=== PATIENT | female | born 1995 ===

== ENCOUNTER 2017-05-27 00:40 | Emergency (ER) | payer OTHER ==
[2017-05-27 00:40] VITALS: BMI 22.6
[2017-05-27 01:08] VITALS: BP 107/71; RESP 16; TEMP 98.3; O2SAT 100
--- NOTE | 2017-05-27 01:26 | ED PDOC ---
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 Patient states she has also had a headache for 1 month. Does not see a launch manager and has had similar chest pain before. Denies fever, cough, v/d, SOB, abdominal pain. Past Medical History Reviewed: Historical Data, Nursing Documentation, Vital Signs Vital Signs: Last Vital Signs Temp 98.3 F 05/27/17 01:05 Pulse 67 05/27/17 01:51 Resp 16 05/27/17 01:05 BP 107/71 05/27/17 01:05 Pulse Ox 100 05/27/17 03:41 - Medical History PMH: Asthma Denies: Alzheimer's Disease, Chronic Kidney Disease Other PMH: WPW - Surgical History Surgical History: No Surg Hx - Family History Family History: States: No Known Family Hx - Social History Current smoker - smoking cessation education provided: No Alcohol: None Drugs: Denies - Home Medications Home Medications: Ambulatory Orders Medication Instructions Recorded Vit No.126/Iron/Folic 1 tab PO DAILY 08/18/16 [Prenavite] Ondansetron [Zofran Odt] 4 mg PO ASDIR PRN #10 odt 11/03/16 Albuterol HFA [Ventolin HFA 90 1 puff IH Q6 PRN #1 inhaler 01/31/17 mcg/actuation (8 g)] - Allergies Allergies/Adverse Reactions: Allergies Allergy/AdvReac Type Severity Reaction Status Date / Time influenza virus vaccine, Allergy ANAPHYLAXIS Verified 11/03/16 13:19 specific [influenza virus vacc,specific] latex Allergy RASH Verified 11/03/16 13:19 oseltamivir phosphate Allergy ANAPHYLAXIS Verified 11/03/16 13:19 [From Tamiflu] pomegranate Allergy RASH Verified 11/03/16 13:19 Review of Systems ROS Statement: Except As Marked, All Systems Reviewed And Found Negative Constitutional: Negative for: Fever Cardiovascular: Positive for: Chest Pain Respiratory: Negative for: Cough, Shortness of Breath Gastrointestinal: Negative for: Vomiting, Abdominal Pain, Diarrhea Neurological: Positive for: Headache Physical Exam - Reviewed Nursing Documentation Reviewed: Yes Vital Signs Reviewed: Yes - Physical Exam Appears: Positive for: Well, No Acute Distress Head Exam: Positive for: ATRAUMATIC, NORMAL INSPECTION, NORMOCEPHALIC Skin: Positive for: Normal Color Neck: Positive for: Normal Cardiovascular/Chest: Positive for: Regular Rate, Rhythm. Negative for: Murmur , Tachycardia Respiratory: Positive for: Normal Breath Sounds. Negative for: Wheezing, Respiratory Distress Gastrointestinal/Abdominal: Positive for: Normal Exam, Soft. Negative for: Tenderness Back: Positive for: Normal Inspection Extremity: Positive for: Normal ROM. Negative for: Deformity, Swelling Neurologic/Psych: Positive for: Alert, Oriented - Laboratory Results Result Diagrams: 05/27/17 02:55 05/27/17 02:55 - ECG ECG: Positive for: Interpreted By Me, Viewed By Me ECG Rhythm: Positive for: Sinus Rhythm (WPW, NSR at 73 bpm ) O2 Sat by Pulse Oximetry: 100 Pulse Ox Interpretation: Normal (RA) Medical Decision Making Medical Decision Makin: Impression: chest pain, headache Plan: CT head Labs Toradol 30mg IV reassess 0208: CT head impression: 1. No acute intracranial abnormality. 0332: Labs reviewed, WNL. CT negative. Patient has been sleeping comfortably in ED and is stable for d/c. Advised patient to f/u outpatient with launch manager and neurologist. Return to the ED with any worsening or concerning symptoms. Scribe Attestation: Documented by Lore Tyson acting as a scribe for Madhuri Avina MD. Provider Scribe Attestation: All medical record entries made by the Scribe were at my direction and personally dictated by me. I have reviewed the chart and agree that the record accurately reflects my personal performance of the history, physical exam, medical decision making, and the department course for this patient. I have also personally directed, reviewed, and agree with the discharge instructions and disposition. Disposition - Clinical Impression Clinical Impression: Chest wall pain, Headache - Patient ED Disposition Is Patient to be Admitted: No Counseled Patient/Family Regarding: Studies Performed, Diagnosis, Need For Followup - Disposition Referrals: [facility] [Outside] Ilan Jerez MD [Staff Provider] - Florencio Briones MD [Staff Provider] - Disposition: Routine/Home Disposition Time: 03:00 Condition: IMPROVED Additional Instructions: follow up with your doctor within 1-2 days return to the ED with any worsening or concerning symptoms. Instructions: Chest Wall Pain (ED), General Headache (ED)
[2017-05-27 01:54] VITALS: PULSE 67
[2017-05-27 03:00] LABS: BASO # 0.1 K/uL (0.0-0.2); BASO % 0.8 % (0.0-2.0); EOS # 0.2 K/uL (0.0-0.7); EOS % 2.5 % (0.0-4.0); HEMOGLOBIN 14.3 g/dL (12.0-16.0); LYMPH # 2.6 K/uL (1.0-4.3); LYMPH % 42.2 % (20.0-40.0); MEAN CELL VOLUME 94.2 fl (81.0-99.0); MEAN CORPUSCULAR HEMOGLOBIN 31.8 pg (27.0-31.0); MEAN CORPUSCULAR HGB CONC 33.7 g/dL (33.0-37.0); MEAN PLATELET VOLUME 7.6 fl (7.2-11.7); MONO # 0.6 K/uL (0.0-0.8); MONO % 9.3 % (0.0-10.0); NEUT # 2.7 K/uL (1.8-7.0); NEUT % 45.2 % (50.0-75.0); NRBC % 0.1 % (0.0-0.0); RBC 4.5 Mil/uL (3.80-5.20); RED CELL DISTRIBUTION WIDTH 12.9 % (11.5-14.5); WHITE BLOOD COUNT 6.1 K/uL (4.8-10.8)
[2017-05-27 03:06] LABS: ALB/GLOB RATIO 1.5 (1.0-2.1); ALBUMIN 4.7 g/dL (3.5-5.0); ALT/SGPT 42 U/L (9-52); AST/SGOT 27 U/L (14-36); BLOOD UREA NITROGEN 14 mg/dl (7-17); CALCIUM 9.3 mg/dL (8.4-10.2); GFR AFRICAN-AMERICAN > 60; GFR NON-AFRICAN AMERICAN > 60
--- NOTE | 2017-05-27 10:21 | CT ---
CT head without IV contrast History: Headache Technique: Axial computed tomography images were obtained through the head/brain without intravenous contrast. This CT exam was performed using 1 or more of the falling dose reduction techniques: Automated exposure control, adjustment of the MAA and/or kV according to patient size, and/or use of iterative reconstruction technique. Radiation dose: Total exam DLP = 811.25 mGy-cm. Comparison: Noncontrast head CT performed 05/30/15 Findings: The ventricles, sulci, and cisterns appear within normal limits. No intracranial masses or hemorrhages are identified. The rodriguez-white matter differentiation appears intact. Please note that MRI with diffusion imaging is more sensitive in the detection of acute ischemic event. Visualized paranasal sinuses, mastoid air cells, and both orbits appear unremarkable. Impression: No acute intracranial pathology identified. Preliminary impression was provided by virtual radiologic.
--- NOTE | 2017-06-04 06:29 | CARD ---
APPROVED REPORT EKG Measurement Heart [id number] ME [id number] <Conclusion> Normal sinus rhythm Ventricular pre-excitation, WPW pattern type B Abnormal ECG
== END 2017-05-27 03:50 | disposition home or self-care (01) ==
LOC: H.ER 00:40
DX: R07.89 Other chest pain (principal); R51 Headache; J45.909 Unspecified asthma, uncomplicated

== ENCOUNTER 2017-07-24 18:16 | Emergency (ER) | payer OTHER ==
[2017-07-24 18:24] VITALS: BP 105/65; PULSE 80; RESP 16; TEMP 99.1; O2SAT 100
[2017-07-24 18:25] VITALS: BMI 19.9
--- NOTE | 2017-07-24 18:41 | ED PDOC ---
HPI: General Adult Time Seen by Provider: 07/24/17 18:38 Chief Complaint (Nursing): Lower Extremity Problem/Injury Chief Complaint (Provider): right leg pain History Per: Patient (21 y/o female sent by a clinic for evaluation of right calf pain. Patient states she has noted small bump that she assumed was insect bite. She has scratched this location intermittently but notes increasing pain since. ) Past Medical History Reviewed: Historical Data, Nursing Documentation, Vital Signs Vital Signs: Last Vital Signs Temp 99.1 F 07/24/17 18:24 Pulse 80 07/24/17 18:24 Resp 16 07/24/17 18:24 BP 105/65 07/24/17 18:24 Pulse Ox 100 07/24/17 18:42 - Medical History PMH: Asthma, CAD (WPW) Denies: Alzheimer's Disease, Chronic Kidney Disease - Family History Family History: States: Unknown Family Hx - Home Medications Home Medications: Ambulatory Orders Medication Instructions Recorded Vit No.126/Iron/Folic 1 tab PO DAILY 08/18/16 [Prenavite] Ondansetron [Zofran Odt] 4 mg PO ASDIR PRN #10 odt 11/03/16 Albuterol HFA [Ventolin HFA 90 1 puff IH Q6 PRN #1 inhaler 01/31/17 mcg/actuation (8 g)] Cephalexin [Keflex] 1 tab PO QID #28 capsule 07/24/17 Hydrocortisone 1% Cream [Cortizone 0.5 gm TP BID #1 tube 07/24/17 1% Cream] - Allergies Allergies/Adverse Reactions: Allergies Allergy/AdvReac Type Severity Reaction Status Date / Time influenza virus vaccine, Allergy ANAPHYLAXIS Verified 11/03/16 13:19 specific [influenza virus vacc,specific] latex Allergy RASH Verified 11/03/16 13:19 oseltamivir phosphate Allergy ANAPHYLAXIS Verified 11/03/16 13:19 [From Tamiflu] pomegranate Allergy RASH Verified 11/03/16 13:19 Review of Systems ROS Statement: Except As Marked, All Systems Reviewed And Found Negative Physical Exam - Reviewed Nursing Documentation Reviewed: Yes Vital Signs Reviewed: Yes - Physical Exam Appears: Positive for: Well, Non-toxic, No Acute Distress Head Exam: Positive for: ATRAUMATIC, NORMAL INSPECTION, NORMOCEPHALIC Skin: Positive for: Normal Color, Warm, DRY Eye Exam: Positive for: EOMI, Normal appearance, PERRL ENT: Positive for: Normal ENT Inspection Neck: Positive for: Normal, Painless ROM Cardiovascular/Chest: Positive for: Regular Rate, Rhythm Respiratory: Positive for: CNT, Normal Breath Sounds Gastrointestinal/Abdominal: Positive for: Normal Exam, Bowel Sounds, Soft Back: Positive for: Normal Inspection Extremity: Positive for: Normal ROM, Tenderness (right calf tenderness. (+) hyperpigmentation noted right calf region. small lesions noted hyperdense generalized on right calf.) Neurologic/Psych: Positive for: Alert, Oriented - ECG O2 Sat by Pulse Oximetry: 100 - Progress ED Course And Treament: DUPLEX RIGHT: NEG FOR DVT Medical Decision Making Medical Decision Making: Rash does not appear like shingles. Moderate tenderness noted. Possible infected insect bite. WIll r/o DVT Disposition - Clinical Impression Clinical Impression: Insect bite - Patient ED Disposition Is Patient to be Admitted: No - Disposition Referrals: [facility] [Outside] Disposition: Routine/Home Disposition Time: 19:15 Condition: STABLE Prescriptions: Cephalexin [Keflex] 1 tab PO QID #28 capsule Hydrocortisone 1% Cream [Cortizone 1% Cream] 0.5 gm TP BID #1 tube Instructions: Insect Bite or Sting (ED)
--- NOTE | 2017-07-24 20:00 | US ---
EXAM: US Duplex Right Lower Extremity Veins EXAM DATE/TIME: 07/24/2017 6:38 PM CLINICAL HISTORY: 21 years old, female; Pain; Leg, lower; Right; Additional info: Right leg pain TECHNIQUE: Real-time ultrasound scan of the veins of the right lower extremity with color Doppler flow, spectral waveform analysis and compression. COMPARISON: There are no prior studies for comparison. FINDINGS: Deep veins: Common femoral, superficial femoral, popliteal and posterior tibial veins were evaluated. All veins examined are compressible. There are no intraluminal filling defects. There is expected blood flow on Doppler imaging. There is change in waveform with augmentation. Soft tissues: No focal abnormality is seen in the area cutaneous erythema Impression: No deep venous thrombosis in the visualized vascular segments of the right lower extremity
== END 2017-07-24 19:53 | disposition home or self-care (01) ==
LOC: H.ER 18:16
DX: M79.604 Pain in right leg (principal); T14.8 Other injury of unspecified body region; W57.XXXA Bitten or stung by nonvenomous insect and other nonvenomous arthropods, initial encounter; Y92.89 Other specified places as the place of occurrence of the external cause

== ENCOUNTER 2017-08-07 11:20 | Emergency (ER) | payer OTHER ==
[2017-08-07 11:22] VITALS: BMI 19.9
[2017-08-07 11:27] VITALS: TEMP 98.8
[2017-08-07] MEDS ORDERED: Sodium Chloride 0.9% 1,000 ML IV STA (11:56)
--- NOTE | 2017-08-07 12:21 | ED PDOC ---
HPI: Eye Injury/Pain Time Seen by Provider: 08/07/17 11:49 Chief Complaint (Nursing): Eye Problem Chief Complaint (Provider): Neurological Problem History Per: Patient History/Exam Limitations: no limitations Onset/Duration Of Symptoms: Days (x2) Current Symptoms Are (Timing): Still Present Additional Complaint(s): Mariola Bender is a 22 year old female presenting to the ED for an evaluation of right sided facial pain associated with blurry vision in her right eye and facial swelling occurring for 2 days prior to arrival. The patient reports being seen by a dentist where she had X-rays of her teeth completed and was told the problem is not her tooth. She states have subjective fevers on and off and heavy vaginal bleeding today. The patient reports taking Augmentin and Motrin for the pain, without relief. She denies nasal discharge, weakness in her extremities, difficulty in gait, coughing, or vomiting. PMD: None Provided Past Medical History Reviewed: Historical Data, Nursing Documentation, Vital Signs Vital Signs: Last Vital Signs Temp 98.8 F 08/07/17 11:26 Pulse 112 H 08/07/17 11:26 Resp 16 08/07/17 11:26 BP 118/70 08/07/17 11:26 Pulse Ox 98 08/07/17 11:29 - Medical History PMH: Asthma, CAD (WPW) Denies: Alzheimer's Disease, Chronic Kidney Disease - Family History Family History: States: Unknown Family Hx - Social History Current smoker - smoking cessation education provided: Yes Ex-Smoker (has not smoked in the last 12 months): No Alcohol: None Drugs: Denies - Home Medications Home Medications: Ambulatory Orders Medication Instructions Recorded Vit No.126/Iron/Folic 1 tab PO DAILY 08/18/16 [Prenavite] Ondansetron [Zofran Odt] 4 mg PO ASDIR PRN #10 odt 11/03/16 Albuterol HFA [Ventolin HFA 90 1 puff IH Q6 PRN #1 inhaler 01/31/17 mcg/actuation (8 g)] Cephalexin [Keflex] 1 tab PO QID #28 capsule 07/24/17 Hydrocortisone 1% Cream [Cortizone 0.5 gm TP BID #1 tube 07/24/17 1% Cream] DiphenhydrAMINE [Benadryl] 50 mg PO Q6 PRN #24 cap 08/07/17 Levofloxacin [Levaquin] 500 mg PO DAILY #10 tablet 08/07/17 Naproxen 1 tab PO BID PRN #14 tab 08/07/17 Pseudoephedrine [Sudafed Tab] 60 mg PO Q6 PRN #20 tab 08/07/17 oxyCODONE/Acetaminophen [Percocet 1 ea PO Q6 PRN #6 tab 08/07/17 5/325 mg Tab] predniSONE [Prednisone] 3 tab PO DAILY #12 tab 08/07/17 - Allergies Allergies/Adverse Reactions: Allergies Allergy/AdvReac Type Severity Reaction Status Date / Time influenza virus vaccine, Allergy ANAPHYLAXIS Verified 08/07/17 11:27 specific [influenza virus vacc,specific] latex Allergy RASH Verified 08/07/17 11:27 oseltamivir phosphate Allergy ANAPHYLAXIS Verified 08/07/17 11:27 [From Tamiflu] pomegranate Allergy RASH Verified 08/07/17 11:27 Review of Systems ROS Statement: Except As Marked, All Systems Reviewed And Found Negative Constitutional: Positive for: Fever (subjective ) Eyes: Positive for: Vision Change (blurry vision in right eye ) ENT: Negative for: Nose Discharge Respiratory: Negative for: Cough Gastrointestinal: Negative for: Vomiting Genitourinary Female: Positive for: Vaginal Bleeding (heavy) Musculoskeletal: Negative for: Arm Pain, Leg Pain Neurological: Positive for: Other (right sided facial pain; facial swelling ). Negative for: Incoordination Physical Exam - Reviewed Nursing Documentation Reviewed: Yes Vital Signs Reviewed: Yes - Physical Exam Appears: Positive for: Non-toxic, No Acute Distress Head Exam: Positive for: ATRAUMATIC, NORMOCEPHALIC (facial swelling noted; tenderness along right side of face; nontendor dentition; difficulty noted opening jaw) Skin: Positive for: Normal Color, Warm, Dry Eye Exam: Positive for: Normal appearance, EOMI, PERRL ENT: Positive for: Normal ENT Inspection Neck: Positive for: Normal, Painless ROM Cardiovascular/Chest: Positive for: Regular Rate, Rhythm. Negative for: Murmur Respiratory: Positive for: Normal Breath Sounds. Negative for: Respiratory Distress Gastrointestinal/Abdominal: Positive for: Normal Exam, Soft. Negative for: Tenderness Back: Positive for: Normal Inspection Extremity: Positive for: Normal ROM. Negative for: Deformity DTR - Bicep (R): 2+ DTR - Bicep (L): 2+ DTR - Tricep (R): 2+ DTR - Tricep (L): 2+ DTR - Knee (R): 2+ DTR - Knee (L): 2+ DTR - Ankle (R): 2+ DTR - Ankle (L): 2+ Neurologic/Psych: Positive for: Alert, Oriented (x3), Other (5/5 research methodologist strength ) . Negative for: Motor/Sensory Deficits - Laboratory Results Result Diagrams: 08/07/17 12:40 08/07/17 12:40 - ECG O2 Sat by Pulse Oximetry: 98 (RA) Pulse Ox Interpretation: Normal - Progress ED Course And Treament: Called to bedside after IV pulled out. Patient noted to have generalized urticaria. After discussion with patient, will given benadryl 50 mg x 1 dose/ pepcid 20 mg/ prednisone 60 mg x 1 dose Medical Decision Making Medical Decision Making: Time: 11:49 Impression: Neurological Problem Plan: * CT Head W/O Contrast * CMP * CBC (With differential) * SED Rate * NS 1,000 ml IV 500 mls/hr * Toradol 15 mg IVP * Reevaluation Scribe Attestation: Documented by Bety Sheikh, acting as a scribe for Ab Michelle PA-C. Provider Scribe Attestation: All medical record entries made by the Scribe were at my direction and personally dictated by me. I have reviewed the chart and agree that the record accurately reflects my personal performance of the history, physical exam, medical decision making, and the department course for this patient. I have also personally directed, reviewed, and agree with the discharge instructions and disposition. Disposition - Clinical Impression Clinical Impression: Sinusitis - Patient ED Disposition Is Patient to be Admitted: No - Disposition Referrals: Juan C Myrick MD [Staff Provider] - Disposition: Routine/Home Disposition Time: 15:27 Condition: FAIR Prescriptions: DiphenhydrAMINE [Benadryl] 50 mg PO Q6 PRN #24 cap PRN Reason: Itching / Pruritus Levofloxacin [Levaquin] 500 mg PO DAILY #10 tablet Naproxen 1 tab PO BID PRN #14 tab PRN Reason: Pain, Moderate (4-7) oxyCODONE/Acetaminophen [Percocet 5/325 mg Tab] 1 ea PO Q6 PRN #6 tab PRN Reason: Pain, Severe (8-10) predniSONE [Prednisone] 3 tab PO DAILY #12 tab Pseudoephedrine [Sudafed Tab] 60 mg PO Q6 PRN #20 tab PRN Reason: Nasal Congestion Instructions: Sinusitis (ED) Forms: [employer] (Monegasque), [facility] ED School/Work Excuse
[2017-08-07 13:41] LABS: BASO % 0.3 % (0.0-2.0); EOS % 0.4 % (0.0-4.0); HEMATOCRIT 40.5 % (34.0-47.0); LYMPH # 1.4 K/uL (1.0-4.3); LYMPH % 12.7 % (20.0-40.0); MEAN CELL VOLUME 93.5 fl (81.0-99.0); MEAN CORPUSCULAR HEMOGLOBIN 30.7 pg (27.0-31.0); MEAN CORPUSCULAR HGB CONC 32.8 g/dL (33.0-37.0); MEAN PLATELET VOLUME 7.5 fl (7.2-11.7); MONO # 1.1 K/uL (0.0-0.8); MONO % 10.3 % (0.0-10.0); NEUT # 8.4 K/uL (1.8-7.0); NEUT % 76.3 % (50.0-75.0); NRBC % 0.1 % (0.0-0.0); RED CELL DISTRIBUTION WIDTH 12.4 % (11.5-14.5)
[2017-08-07 13:47] LABS: ALB/GLOB RATIO 1.3 (1.0-2.1); ALKALINE PHOSPHATASE 117 U/L (38-126); ALT/SGPT 140 U/L (9-52); AST/SGOT 99 U/L (14-36); BILIRUBIN,TOTAL 1.1 mg/dl (0.2-1.3); BLOOD UREA NITROGEN 9 mg/dl (7-17); CALCIUM 9.5 mg/dL (8.4-10.2); CARBON DIOXIDE 26 mmol/L (22-30); CHLORIDE 102 mmol/L (98-107); GFR AFRICAN-AMERICAN > 60; GLUCOSE,RANDOM 98 mg/dL (65-105); POTASSIUM 4.1 MMOL/L (3.6-5.0); SODIUM 139 mmol/l (132-148); TOTAL PROTEIN 7.6 G/DL (6.3-8.2)
[2017-08-07] MEDS ORDERED: Iohexol 300 100 ML IJ ONE (13:55)
[2017-08-07] MEDS ORDERED: Sodium Chloride 0.9% 50 ML IV ONE (13:55)
--- NOTE | 2017-08-07 14:33 | CT ---
PROCEDURE: CT HEAD WITH AND WITHOUT CONTRAST HISTORY: right sided facial/headache/blurry vision rt eye COMPARISON: None available. TECHNIQUE: Axial computed tomography images were obtained through the head/brain with and without intravenous contrast enhancement. Contrast dose: 90 mL Omnipaque 300 Radiation dose: Total exam DLP = 1748.04 mGy-cm. This CT exam was performed using one or more of the following dose reduction techniques: Automated exposure control, adjustment of the mA and/or kV according to patient size, and/or use of iterative reconstruction technique. FINDINGS: HEMORRHAGE: No intracranial hemorrhage. BRAIN: Mccarthy-white matter differentiation is preserved. There is no mass, mass effect or abnormal extra-axial fluid collection. There is no territorial infarction. There is no abnormal parenchymal or leptomeningeal enhancement. VENTRICLES: The ventricles are normal in size, shape and configuration. CALVARIUM: The skull base and calvarium are normal. SINUSES: There is near complete opacification of the right maxillary sinus and severe mucosal thickening in the right ethmoid air cells with polypoid soft tissue in the right nasal cavity. There is also moderate mucosal thickening in the right inferior frontal sinus. The left-sided paranasal sinuses are predominantly clear. MASTOID AIR CELLS: Unremarkable as visualized. No mastoid effusion. OTHER FINDINGS: None. IMPRESSION: 1. No acute intracranial abnormality. If there is a persistent focal neurologic deficit and an ongoing clinical concern for acute infarction or demyelination, an MRI of the brain without intravenous contrast would be a more sensitive modality for evaluation of hyperacute/acute ischemic infarction and demyelination. 2. Right-sided acute and/ chronic sinusitis. Clinical correlation and follow-up is advised.
[2017-08-07] MEDS ORDERED: Piperacillin/Tazobact 3.375 GM in Sodium Chloride 0.9% 100 ML IVPB STA (14:51)
[2017-08-07] MEDS ORDERED: Piperacillin/Tazobact 3.375 gm Inj IVPB ONE (15:30)
[2017-08-07 17:42] VITALS: BP 110/70; PULSE 90; RESP 18; O2SAT 99
== END 2017-08-07 17:40 | disposition home or self-care (01) ==
LOC: H.ER 11:20
DX: J32.9 Chronic sinusitis, unspecified (principal); N93.9 Abnormal uterine and vaginal bleeding, unspecified
CPT/HCPCS: 70470; 80053; 81025; 85025; 85651; 96374; 99283; J1885; J2543; J7040; Q9967

== ENCOUNTER 2018-01-12 17:02 | Emergency (ER) | payer OTHER ==
[2018-01-12 17:02] VITALS: BMI 19.9
[2018-01-12 17:27] VITALS: TEMP 98.2
--- NOTE | 2018-01-12 18:26 | ED PDOC ---
HPI: Chest Pain Time Seen by Provider: 01/12/18 17:38 Chief Complaint (Nursing): Chest Pain Chief Complaint (Provider): Chest pain History Per: Patient History/Exam Limitations: no limitations Onset/Duration Of Symptoms: Days (1) Current Symptoms Are (Timing): Still Present Additional History Per: Patient Additional Complaint(s): 22yo female, with EGA of 16 weeks per latest ultrasound, presents to ED with complaints of left sided chest pain radiating to her left axilla area since yesterday morning. Of note, patient states she has a history of WPW and has not had any complications due to it; she denies any history of cardiac procedures as well. Patient states her chest pain is worse with deep inspiration and states she feels dizziness, numbness in left arm and tingling in her left hand. She denies any cough, fevers, loss of consciousness, leg swelling. No other complaints. Past Medical History Reviewed: Historical Data, Nursing Documentation, Vital Signs Vital Signs: Last Vital Signs Temp 98.2 F 01/12/18 17:24 Pulse 81 01/12/18 18:37 Resp 16 01/12/18 17:24 BP 110/63 01/12/18 17:24 Pulse Ox 99 01/12/18 18:37 - Medical History PMH: Asthma, CAD (WPW) Denies: Alzheimer's Disease, Chronic Kidney Disease - Surgical History Surgical History: No Surg Hx - Family History Family History: States: Unknown Family Hx - Home Medications Home Medications: Ambulatory Orders Medication Instructions Recorded Vit No.126/Iron/Folic 1 tab PO DAILY 08/18/16 [Prenavite] Ondansetron [Zofran Odt] 4 mg PO ASDIR PRN #10 odt 11/03/16 Albuterol HFA [Ventolin HFA 90 1 puff IH Q6 PRN #1 inhaler 01/31/17 mcg/actuation (8 g)] Cephalexin [Keflex] 1 tab PO QID #28 capsule 07/24/17 Hydrocortisone 1% Cream [Cortizone 0.5 gm TP BID #1 tube 07/24/17 1% Cream] DiphenhydrAMINE [Benadryl] 50 mg PO Q6 PRN #24 cap 08/07/17 Levofloxacin [Levaquin] 500 mg PO DAILY #10 tablet 08/07/17 Naproxen 1 tab PO BID PRN #14 tab 08/07/17 Pseudoephedrine [Sudafed Tab] 60 mg PO Q6 PRN #20 tab 08/07/17 oxyCODONE/Acetaminophen [Percocet 1 ea PO Q6 PRN #6 tab 08/07/17 5/325 mg Tab] predniSONE [Prednisone] 3 tab PO DAILY #12 tab 08/07/17 - Allergies Allergies/Adverse Reactions: Allergies Allergy/AdvReac Type Severity Reaction Status Date / Time influenza virus vaccine, Allergy ANAPHYLAXIS Verified 08/07/17 11:27 specific [influenza virus vacc,specific] latex Allergy RASH Verified 08/07/17 11:27 oseltamivir phosphate Allergy ANAPHYLAXIS Verified 08/07/17 11:27 [From Tamiflu] pomegranate Allergy RASH Verified 08/07/17 11:27 Review of Systems ROS Statement: Except As Marked, All Systems Reviewed And Found Negative Constitutional: Negative for: Fever, Chills Cardiovascular: Positive for: Chest Pain Respiratory: Negative for: Cough, Shortness of Breath Neurological: Positive for: Numbness (left arm), Dizziness Physical Exam - Reviewed Nursing Documentation Reviewed: Yes Vital Signs Reviewed: Yes - Physical Exam Appears: Positive for: Non-toxic, No Acute Distress Head Exam: Positive for: ATRAUMATIC, NORMAL INSPECTION, NORMOCEPHALIC Skin: Positive for: Normal Color, Warm, Dry Eye Exam: Positive for: Normal appearance, EOMI, PERRL Neck: Positive for: Normal, Supple Cardiovascular/Chest: Positive for: Regular Rate, Rhythm Respiratory: Positive for: Normal Breath Sounds. Negative for: Wheezing Gastrointestinal/Abdominal: Positive for: Other (gravid abdomen) Back: Positive for: Normal Inspection Extremity: Positive for: Normal ROM. Negative for: Pedal Edema Neurologic/Psych: Positive for: Alert, Oriented. Negative for: Motor/Sensory Deficits - Laboratory Results Result Diagrams: 01/12/18 18:40 01/12/18 18:40 - ECG ECG Rhythm: Positive for: Sinus Rhythm. Negative for: ST/T Changes Interpretation Of ECG: Short [place] wave Rate: 81 O2 Sat by Pulse Oximetry: 99 (RA) Pulse Ox Interpretation: Normal Medical Decision Making Medical Decision Making: Impression: Chest pain Differential: ACS, pulmonary embolism Plan: -- EKG -- Labs Time: 1899 Case signed out to Dr. Landon pending ER workup, re-evaluation and disposition. Scribe Attestation: Documented by Brunilda Ramos acting as a scribe for Aj Mcclellan MD. Provider Attestation: All medical record entries made by the Scribe were at my direction and personally dictated by me. I have reviewed the chart and agree that the record accurately reflects my personal performance of the history, physical exam, medical decision making, and the department course for this patient. I have also personally directed, reviewed, and agree with the discharge instructions and disposition. Disposition - Patient ED Disposition Is Patient to be Admitted: Transfer of Care - Disposition Disposition: Transfer of Care Disposition Time: 19:00 Forms: [employer] (Maltese) Patient Signed Over To: Ranjit Landon
[2018-01-12 18:45] LABS: BASO % 0.4 % (0.0-2.0); EOS # 0.1 K/uL (0.0-0.7); EOS % 0.6 % (0.0-4.0); HEMOGLOBIN 13.1 g/dL (12.0-16.0); LYMPH # 2.1 K/uL (1.0-4.3); MEAN CELL VOLUME 93.2 fl (81.0-99.0); MEAN CORPUSCULAR HEMOGLOBIN 31.6 pg (27.0-31.0); MEAN CORPUSCULAR HGB CONC 33.9 g/dL (33.0-37.0); MEAN PLATELET VOLUME 7.4 fl (7.2-11.7); MONO # 0.7 K/uL (0.0-0.8); MONO % 7.3 % (0.0-10.0); NEUT # 6.6 K/uL (1.8-7.0); NEUT % 69.7 % (50.0-75.0); NRBC % 0.1 % (0.0-0.0); RBC 4.14 Mil/uL (3.80-5.20); RED CELL DISTRIBUTION WIDTH 14.6 % (11.5-14.5); WHITE BLOOD COUNT 9.5 K/uL (4.8-10.8)
[2018-01-12 18:57] LABS: GFR AFRICAN-AMERICAN > 60; GFR NON-AFRICAN AMERICAN > 60
[2018-01-12 19:12] LABS: BLOOD UREA NITROGEN 7 mg/dl (7-17)
--- NOTE | 2018-01-12 19:27 | ED PDOC ---
- Laboratory Results Result Diagrams: 01/12/18 18:40 01/12/18 18:40 - ECG O2 Sat by Pulse Oximetry: 99 (RA) Pulse Ox Interpretation: Normal Medical Decision Making Medical Decision Making: Time: 1899 Patient signed out to me by Dr. Mcclellan pending labs, re-evaluation. Time: 1999 Labs reviewed, D-Dimer levels with normal limits. Patient reports improvement of pain and is stable for discharge home. Patient to follow up with PCP in 1-2 days. Scribe Attestation: Documented by Brunilda Ramos acting as a scribe for Ranjit Landon MD. Provider Scribe Attestation: All medical record entries made by the Scribe were at my direction and personally dictated by me. I have reviewed the chart and agree that the record accurately reflects my personal performance of the history, physical exam, medical decision making, and the department course for this patient. I have also personally directed, reviewed, and agree with the discharge instructions and disposition. Disposition - Clinical Impression Clinical Impression: Chest pain - POA Present On Arrival: None - Disposition Disposition: Routine/Home Disposition Time: 20:01 Condition: STABLE Instructions: Noncardiac Chest Pain (ED) Forms: [facility] (Burmese)
[2018-01-12 19:38] LABS: PARTIAL THROMBOPLASTIN TIME 27.2 Seconds (25.6-37.1); PROTHROMBIN TIME 11.1 Seconds (9.8-13.1)
[2018-01-12 20:05] VITALS: BP 105/63; PULSE 75; RESP 17
[2018-01-13 03:52] VITALS: O2SAT 99
--- NOTE | 2018-01-13 14:48 | CARD ---
APPROVED REPORT EKG Measurement Heart [id number] CO 92P80 [id number] <Conclusion> Sinus rhythm with short CO Probable WPW pattern with delta wave in lead V3
== END 2018-01-12 20:25 | disposition home or self-care (01) ==
LOC: H.ER 17:02
DX: R07.89 Other chest pain (principal)

== ENCOUNTER 2018-02-01 11:30 | Emergency (ER) | payer OTHER ==
[2018-02-01 12:37] VITALS: BMI 21.7
[2018-02-01 13:39] LABS: SQUAMOUS EPITHIAL 3 /hpf (0-5); URINE BACTERIA RARE (<OCC); URINE BILIRUBIN NEGATIVE (NEGATIVE); URINE BLOOD NEGATIVE (NEGATIVE); URINE CLARITY SLIGHTY-CLOUDY (Clear); URINE COLOR YELLOW (YELLOW); URINE GLUCOSE (UA) NEG (Normal); URINE LEUKOCYTE ESTERASE SMALL Leu/uL (Negative); URINE NITRATE NEGATIVE (NEGATIVE); URINE PROTEIN NEGATIVE (NEGATIVE); URINE UROBILINOGEN 0.2-1.0 mg/dL (0.2-1.0)
--- NOTE | 2018-02-01 15:00 | US ---
PROCEDURE: Transvaginal obstruct ultrasonography HISTORY: lower abdominal pain COMPARISON: None available TECHNIQUE: Limited transvaginal obstetric ultrasound was performed as per referring physician request 4 cervical length only. This on discussion of the case by the technologist with Dr. Varghese. FINDINGS: A single viable intrauterine gestation is identified with cardiac activity recorded 152 beats per minute. A high a posterior fundal placenta appears to developing with cervical internal os closed and overall cervical length measuring 4.7 cm. No biometry performed/submitted. IMPRESSION: A single viable intrauterine gestation is identified with maternal cervical length of 4.7 cm without placental abruption or previa grossly evident. Internal cervical os is closed. biometry in more complete evaluation can be performed on outpatient basis or is otherwise required. Please see discussion above.
--- NOTE | 2018-02-01 15:30 | OBDCSUM ---
Datetime: 02/01/2018 15:20 Discharged to, Provider: Home Follow up at, Provider: Dr Michel Disch Instr Activity: Normal activity Disch Instr Diet: Regular Discharge Instructions, Provider: Routine instructions given Discharge Time: 02/01/2018 15:20 Follow up in weeks, Provider: as per schedule Disch Activity Restrictions: No exercising; Minimize walking; Minimize stair-climbing; No sexual act ivity; Nothing in vagina - [place], tampons, douche Discharge Diagnosis Prov Other: Maternal discomfort at 19+ weeks
--- NOTE | 2018-02-01 15:31 | OBHP ---
Datetime: 02/01/2018 13:03 IP Adm Impression: , intrauterine IP Admit Plan: Observation/Evaluation; Discharge home Admit Comment, IP Provider: 22 yo at 19+6 wks c/o bad cramps for 2-3 days, reports that she vomited x 4x on the 1st day of the cramping. Pt report that she drinks a lot of water. Pt denies VB , LOF, and reports unsure about ctxns. Pt reports that she doesn't have cramps now but has pain in l ower abdomen. Pt denies dysuria and reports that she has an appetite. Pt reports that the pain is w orse w/ long standing or can wake her from sleep at night. 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 Internal os is vasiliy sed. Pain may be musculoskeletal, could be round ligament pain. Rec that she stay well-hydrated and ma y try tylenol for pain relief. Discharged home w/ PTL precautions Pt has an appointment w/ Dr. Michel on 02/05/2018. Extremities - PN: Normal Abdomen - PN: Normal Back - PN: Normal Lungs - PN: Normal Heart - PN: Normal Neurologic - PN: Normal General - PN: Normal FHR - Baseline A Provider: 155 Membranes, Provider: Intact Contraction Comments Provider: None EGA AdmitDate IP: 19.6 Vital Signs Provider: Reviewed IP Chief Complaint: Maternal discomfort NICHD Decel Fetus A IP Provider: None Dilatation, Provider: 0 Effacement, Provider: 0 Station, Provider: -3 Genitourinary Exam: Normal
[2018-02-01 19:53] VITALS: BP 111/49; PULSE 89
== END 2018-02-01 15:25 | disposition home or self-care (01) ==
LOC: H.EROB2 11:30 → H.EROB 12:39 → H.EROB2 15:25
DX: O26.92 Pregnancy related conditions, unspecified, second trimester (principal); R10.2 Pelvic and perineal pain; Z3A.19 19 weeks gestation of pregnancy

== ENCOUNTER 2018-03-14 04:34 | Emergency (ER) | payer OTHER, MEDICAID ==
[2018-03-14 04:34] VITALS: BMI 21.7
[2018-03-14 04:43] VITALS: BP 103/66; PULSE 86; RESP 16; TEMP 97.9; O2SAT 99
--- NOTE | 2018-03-14 05:32 | ED PDOC ---
HPI: CCC, URI, Sore Throat Chief Complaint (Provider): Sinus History Per: Patient History/Exam Limitations: no limitations Have you had recent travel within the past 21 days to any of the following countries: [place], [place], [place] or [place]?: No Onset/Duration Of Symptoms: Waxing/Waning Current Symptoms Are (Timing): Still Present Location Of Pain: Sinus/es Sick Contacts (Context): None Associated Symptoms: Fever, Sinus Drainage, Nasal Congestion Pain Scale Rating Of: 5 Additional History Per: Patient <Jose Judge - Last Filed: 03/14/18 05:40> <Ranjit Landon - Last Filed: 03/16/18 05:35> Time Seen by Provider: 03/14/18 05:11 Chief Complaint (Nursing): ENT Problem Additional Complaint(s): 22 y/o F 22 weeks with Hx of recurrent sinusitis presents to ED c/o sinus pain and nasal congestion. As per patient she started having symptoms 2-3 days ago, she had a fever at home Yesterday, has been using saline drop that produces greenish drainage from L/nostril. Patient hasnt seen ENT for her recurrent sinus infection and dosnt have a PMD. She took Tylenol 50 mg before coming to hosp. As per patient she tried Amoxicillin in the past but developed hives. Old records show previous visits in 2017 for similar symptoms when patient was prescribed Keflex and Levaquin in separate occasions. Denies vomiting, dizziness, nausea, diarrhea, CO or SOB. (Jose Judge) Supervising Attending Note - Supervising Attending Note The Documented history was done by the: Physician Digital Account Executive The documented physical exam was done by the: Physician Digital Account Executive The documented procedures were done by the: Physician Digital Account Executive - Attestation: I have personally seen and examined this patient.: Yes I have fully participated in the care of the patient.: Yes I have reviewed all pertinent clinical information, including history, physical exam and plan: Yes <Ranjit Landon - Last Filed: 03/16/18 05:35> Past Medical History Reviewed: Historical Data, Nursing Documentation, Vital Signs - Medical History PMH: Asthma, CAD (WPW) Denies: Alzheimer's Disease, Chronic Kidney Disease - Family History Family History: States: Unknown Family Hx <Jose Judge - Last Filed: 03/14/18 05:40> <Ranjit Landon Ghanshyam - Last Filed: 03/16/18 05:35> Vital Signs: Last Vital Signs Temp 97.9 F 03/14/18 04:47 Pulse 86 03/14/18 04:47 Resp 16 03/14/18 04:47 BP 103/66 03/14/18 04:47 Pulse Ox 99 03/14/18 05:40 - Home Medications Home Medications: Ambulatory Orders Medication Instructions Recorded Vit No.126/Iron/Folic 1 tab PO DAILY 08/18/16 [Prenavite] Ondansetron [Zofran Odt] 4 mg PO ASDIR PRN #10 odt 11/03/16 Albuterol HFA [Ventolin HFA 90 1 puff IH Q6 PRN #1 inhaler 01/31/17 mcg/actuation (8 g)] Cephalexin [Keflex] 1 tab PO QID #28 capsule 07/24/17 Hydrocortisone 1% Cream [Cortizone 0.5 gm TP BID #1 tube 07/24/17 1% Cream] DiphenhydrAMINE [Benadryl] 50 mg PO Q6 PRN #24 cap 08/07/17 Levofloxacin [Levaquin] 500 mg PO DAILY #10 tablet 08/07/17 Naproxen 1 tab PO BID PRN #14 tab 08/07/17 Pseudoephedrine [Sudafed Tab] 60 mg PO Q6 PRN #20 tab 08/07/17 oxyCODONE/Acetaminophen [Percocet 1 ea PO Q6 PRN #6 tab 08/07/17 5/325 mg Tab] predniSONE [Prednisone] 3 tab PO DAILY #12 tab 08/07/17 Azithromycin [Zithromax] 250 mg PO QAM #1 pkg 03/14/18 - Allergies Allergies/Adverse Reactions: Allergies Allergy/AdvReac Type Severity Reaction Status Date / Time influenza virus vaccine, Allergy ANAPHYLAXIS Verified 03/14/18 04:46 specific [influenza virus vacc,specific] latex Allergy RASH Verified 03/14/18 04:46 oseltamivir phosphate Allergy ANAPHYLAXIS Verified 03/14/18 04:46 [From Tamiflu] Penicillins Allergy RASH Verified 03/14/18 04:46 pomegranate Allergy RASH Verified 03/14/18 04:46 Review of Systems ROS Statement: Except As Marked, All Systems Reviewed And Found Negative Constitutional: Positive for: Fever ENT: Positive for: Nose Pain, Nose Discharge, Nose Congestion Neurological: Positive for: Headache <Jose Judge - Last Filed: 03/14/18 05:40> Physical Exam - Physical Exam Appears: Positive for: Uncomfortable Head Exam: Positive for: ATRAUMATIC Skin: Positive for: Normal Color, Warm Eye Exam: Positive for: PERRL. Negative for: Periorbital swelling, Periorbital tenderness ENT: Positive for: Sinus Pain/Drainage, Nasal Congestion. Negative for: Pharyngeal Erythema, Tonsillar Exudate, Tonsillar Swelling Neck: Positive for: Normal Cardiovascular/Chest: Positive for: Regular Rate, Rhythm. Negative for: Gallop , Murmur Respiratory: Positive for: Normal Breath Sounds. Negative for: Crackles, Rales , Wheezing, Respiratory Distress Gastrointestinal/Abdominal: Positive for: Soft. Negative for: Tenderness Extremity: Negative for: Tenderness, Pedal Edema, Calf Tenderness, Swelling Neurologic/Psych: Positive for: Alert, Oriented. Negative for: Motor/Sensory Deficits <Jose Judge - Last Filed: 03/14/18 05:40> - ECG O2 Sat by Pulse Oximetry: 99 <Jose Judge - Last Filed: 03/14/18 05:40> Medical Decision Making <Jose Judge - Last Filed: 03/14/18 05:40> <Ranjit Landon - Last Filed: 03/16/18 05:35> Medical Decision Makin22 y/o presents with acute sinusitis PCN allergy/ Zithromax PO for 5 days Tylenol 650 mg q6h PRN for pain Saline nasal drops q4h with bulb aspiration F/U with ENT as outpatient (Jose Judge) Disposition - Patient ED Disposition Is Patient to be Admitted: No - Disposition Disposition: Routine/Home Disposition Time: 05:30 <Jose Judge - Last Filed: 03/14/18 05:40> <Ranjit Landon - Last Filed: 03/16/18 05:35> - Clinical Impression Clinical Impression: Sinusitis - Disposition Condition: STABLE Additional Instructions: F/u as outpatient with ENT for further workup Take Tylenol as prescribed C/W Saline nasal drops Prescriptions: Azithromycin [Zithromax] 250 mg PO QAM #1 pkg Instructions: Sinusitis in Adults Forms: [facility] ([place])
== END 2018-03-14 05:40 | disposition home or self-care (01) ==
LOC: H.ER 04:34
DX: J32.9 Chronic sinusitis, unspecified (principal); I25.10 Atherosclerotic heart disease of native coronary artery without angina pectoris; Z88.0 Allergy status to penicillin; I45.6 Pre-excitation syndrome; J45.909 Unspecified asthma, uncomplicated

== ENCOUNTER 2018-06-09 20:04 | Emergency (ER) | payer OTHER, MEDICAID ==
--- NOTE | 2018-06-09 21:09 | OBHP ---
Datetime: 06/09/2018 20:30 IP Adm Impression: Term, intrauterine ; No Active Labor; Intact Membranes IP Admit Plan: Discharge home Admit Comment, IP Provider: 22yo IUP at 36+w c/o lower abd pain since 5pm...q8m. No SROM. No VB. +FM PNC: EDC Jul 02 - chart rev'd PM: denies PSH: denies Allergy : Latex;PCN; Oseltamivir POBH: x 3 spont ab x 1 PGYNH: Hx Chl A; IUP at 36w not in labor PLAN: labor instructions; f/u appt next th D/C home Pelvic Type - PN: Adequate Extremities - PN: Normal Abdomen - PN: Normal Back - PN: Normal Neurologic - PN: Normal HEENT - PN: Normal General - PN: Normal Presentation-Admit: Vertex IP Fetus A Comments: Sono ceph FHR - Baseline A Provider: 140 Membranes, Provider: Intact Pool Provider: Negative IP Hx Assessment: The History has been Reviewed and is Current EGA AdmitDate IP: 36.5 IP Chief Complaint: Uterine contractions NICHD Variability Prov Fetus A: Moderate 6-25bpm NICHD Accel Fetus A IP Provider: 15X15 FHR Category Provider Fetus A: Category I NICHD Decel Fetus A IP Provider: None Dilatation, Provider: FT Effacement, Provider: 0 Station, Provider: high DTRs - PN: Normal
--- NOTE | 2018-06-09 21:09 | OBDCSUM ---
Datetime: 06/09/2018 20:55 Discharged to, Provider: Home Follow up at, Provider: Disch Instr Activity: Normal activity Disch Instr Diet: Regular Discharge Instructions, Provider: Routine instructions given Discharge Diagnosis, Provider: Cat Juanidamarco a Discharge Time: 06/09/2018 20:56 Follow up in weeks, Provider: 06/17/2018 Disch Referrals: None Contraception discussed, Prov: Yes Disch Activity Restrictions: No lifting
[2018-06-10 01:40] VITALS: BP 108/70; PULSE 83; RESP 17; TEMP 98.4
--- NOTE | 2018-06-10 08:55 | OBDCSUM ---
Datetime: 06/09/2018 20:55 Discharged to, Provider: Home Follow up at, Provider: Disch Instr Activity: Normal activity Disch Instr Diet: Regular Discharge Instructions, Provider: Routine instructions given Discharge Diagnosis, Provider: False Labor - Undelivered Discharge Time: 06/09/2018 20:56 Follow up in weeks, Provider: 06/17/2018 Disch Referrals: None Contraception discussed, Prov: Yes Disch Activity Restrictions: No lifting
== END 2018-06-09 20:56 | disposition home or self-care (01) ==
LOC: H.EROB2 20:04
DX: O47.1 False labor at or after 37 completed weeks of gestation (principal); O26.93 Pregnancy related conditions, unspecified, third trimester; R10.2 Pelvic and perineal pain; Z3A.38 38 weeks gestation of pregnancy

== ENCOUNTER 2018-06-16 14:58 | Inpatient (IN) | payer OTHER, MEDICAID ==
[2018-06-16 15:57] VITALS: BMI 24.6
[2018-06-16] MEDS ORDERED: Lactated Ringer's 1,000 ML IV ONE (15:57)
[2018-06-16 16:15] VITALS: O2SAT 100
[2018-06-16 17:02] LABS: BASO % 0.5 % (0.0-2.0); EOS # 0.1 K/uL (0.0-0.7); EOS % 0.6 % (0.0-4.0); HEMOGLOBIN 13.4 g/dL (12.0-16.0); LYMPH # 1.4 K/uL (1.0-4.3); LYMPH % 16.4 % (20.0-40.0); MEAN CELL VOLUME 89.4 fl (81.0-99.0); MEAN CORPUSCULAR HEMOGLOBIN 29.9 pg (27.0-31.0); MEAN CORPUSCULAR HGB CONC 33.5 g/dL (33.0-37.0); MEAN PLATELET VOLUME 8.2 fl (7.2-11.7); MONO % 11.6 % (0.0-10.0); NEUT # 6.1 K/uL (1.8-7.0); NEUT % 70.9 % (50.0-75.0); NRBC % 0.1 % (0.0-0.0); RBC 4.48 Mil/uL (3.80-5.20); RED CELL DISTRIBUTION WIDTH 14.1 % (11.5-14.5); WHITE BLOOD COUNT 8.6 K/uL (4.8-10.8)
[2018-06-16] MEDS ORDERED: Oxytocin 30 units/LR 500ML 30 U/500 ML BAG IV ONE ×2 (18:17→22:53)
[2018-06-16] MEDS ORDERED: Lactated Ringer's 1,000 ML IV SCH (18:30)
[2018-06-16] MEDS ORDERED: Fentanyl/Bupivacaine HCl 250 ML EPI ONE (21:26)
--- NOTE | 2018-06-16 21:31 | OBHP ---
Datetime: 06/16/2018 15:38 IP Adm Impression: Term, intrauterine IP Admit Plan: Admit to unit; Initiate labor protocol Admit Comment, IP Provider: PNP: Dr. Michel Last visit _ ultrasound: 06/16/2018 22 yo at 37.5 wks based on ultrasound performed 11/16/2017 with LMP 09/03/2017 is presenti ng for induction due to oligohydramnios with CHERI 2.6cm. Patient is also c/o contractions 07/09, and de nied vaginal bleeding or loss of fluid. movement appreciated. Patient was seen here 06/09/2018 for abdominal pain and was d/c because of false labor. OBGYNhx: x 3: -2015, F -2014, M -2012, PMH: none Meds: prenatals Allergies: flu vaccine- anaphylaxis Famhx: F-HTN Sochx: no Tobacco, alcohol or drug use Surghx: none ROS: denied cp, sob, dysuria, f/c/n/v/d Vitals:BP: 115/68 Pulse-88bpm Spo2- 100% PE: well appearing female in no acute distress Cardio: s1s2 auscultated, no murmurs Resp: clear b/l ABd: BS+ FHR: 150 bpm, moderate variability [place]: occasional Vacm dil, 15% effaced, -2 station Ext: calves nontender A/P:22 yo at 37.5 wks presenting for induction. 1. Oligohydramnios- Admit to unit, induction of labor protocol initiated. Patient seen and examined with Dr. González Stone PGY-1. Attending Note: Patient was seen and examined with the resident and I agree with the above assessment. Pt will be admitted for IOL due to oligohydramnios as per MFM evaluation. Abdomen - PN: Normal Lungs - PN: Normal Heart - PN: Normal General - PN: Normal FHR - Baseline A Provider: 150 Gestation - Est Wks by US: 37.5 Pool Provider: Negative IP Hx Assessment: The History has been Reviewed and is Current EGA AdmitDate IP: 37.5 Vital Signs Provider: Reviewed; Within Normal Limits IP Chief Complaint: Uterine contractions NICHD Variability Prov Fetus A: Moderate 6-25bpm NICHD Accel Fetus A IP Provider: 15X15 FHR Category Provider Fetus A: Category I NICHD Decel Fetus A IP Provider: None Dilatation, Provider: 1 Effacement, Provider: 15 Station, Provider: -2 Genitourinary Exam: Normal
--- NOTE | 2018-06-16 21:35 | OBADHP ---
Datetime: 06/16/2018 15:38 IP Adm Impression Other: Oligohydramnios Admit Comment, IP Provider: PNP: Dr. Michel Last visit _ ultrasound: 06/16/2018 22 yo at 37.5 wks based on ultrasound performed 11/16/2017 with LMP 09/03/2017 is presenti ng for induction due to oligohydramnios with CHERI 2.6cm. Patient is also c/o contractions 07/09, and de nied vaginal bleeding or loss of fluid. movement appreciated. Patient was seen here 06/09/2018 for abdominal pain and was d/c because of false labor. OBGYNhx: x 3: -2015, F -2014, M -2012, PMH: none Meds: prenatals Allergies: flu vaccine- anaphylaxis Famhx: F-HTN Sochx: no Tobacco, alcohol or drug use Surghx: none ROS: denied cp, sob, dysuria, f/c/n/v/d Vitals:BP: 115/68 Pulse-88bpm Spo2- 100% PE: well appearing female in no acute distress Cardio: s1s2 auscultated, no murmurs Resp: clear b/l ABd: BS+ FHR: 150 bpm, moderate variability [place]: occasional Vacm dil, 15% effaced, -2 station Ext: calves nontender A/P:22 yo at 37.5 wks presenting for induction. 1. Oligohydramnios- Admit to unit, induction of labor protocol initiated. Patient seen and examined with Dr. González Stone PGY-1. Attending Note: Patient was seen and examined with the resident and I agree with the above assessment. Pt will be admitted for IOL due to oligohydramnios as per MFM evaluation. Abdomen - PN: Normal Lungs - PN: Normal Heart - PN: Normal General - PN: Normal FHR - Baseline A Provider: 150 Gestation - Est Wks by US: 37.5 Pool Provider: Negative IP Hx Assessment: The History has been Reviewed and is Current Vital Signs Provider: Reviewed; Within Normal Limits IP Chief Complaint: Uterine contractions; Maternal discomfort NICHD Variability Prov Fetus A: Moderate 6-25bpm NICHD Accel Fetus A IP Provider: 15X15 FHR Category Provider Fetus A: Category I NICHD Decel Fetus A IP Provider: None Dilatation, Provider: 1 Effacement, Provider: 15 Station, Provider: -2 Genitourinary Exam: Normal EGA AdmitDate IP: 37.5 IP Adm Impression: Term, intrauterine ; No Active Labor IP Admit Plan: Admit to unit; Initiate labor induction protocol Datetime: 06/09/2018 20:30 Pelvic Type - PN: Adequate Extremities - PN: Normal Back - PN: Normal Neurologic - PN: Normal HEENT - PN: Normal Presentation-Admit: Vertex IP Fetus A Comments: Sono ceph Membranes, Provider: Intact DTRs - PN: Normal Datetime: 02/01/2018 13:03 Contraction Comments Provider: None
--- NOTE | 2018-06-16 21:39 | OBPN ---
Datetime: 06/16/2018 21:35 IP Progress Impression: Normal progression of labor IP Informed Consent Obtain: Vaginal Delivery IP Procedures: Sterile Vag Exam IP Progress Plan: Continue present management; Cervical Ripening Membranes, Provider: Intact FHR - Baseline A Provider: 150 Gestation - Est Wks by US: 37.0 Presentation-Admit: Vertex IP Progress Note Comment: cervidil placed at 1930pm Patient currently having regular contractions. Plan; Continue monitoring the progress of labor. NICHD Accel Fetus A IP Provider: 15X15 FHR Category Provider Fetus A: Category I NICHD Variability Prov Fetus A: Moderate 6-25bpm Dilatation, Provider: 3 Effacement, Provider: 50 Station, Provider: -3 NICHD Decel Fetus A IP Provider: None Datetime: 06/16/2018 15:38 Pool Provider: Negative Vital Signs Provider: Reviewed; Within Normal Limits Datetime: 06/09/2018 20:30 IP Fetus A Comments: Sono ceph Datetime: 02/01/2018 13:03 Contraction Comments Provider: None
--- NOTE | 2018-06-17 00:06 | OBDS ---
MATERNAL INFORMATION Provider Comments: Uncomplicated Spontaneous vaginal delivery of a viable female infant with BW of a nd scores of 9 and 9 over an intact perineum. EBL- 150mls Patient tolerated the procedure well. LABOR SUMMARY EDC: 07/02/2018 00:00 LABOR INFORMATION Cervical Ripening Agents: Cervidil PRESENTATION/POSITION BABY A Presentation: Cephalic IDENTIFICATION/MEDS BABY A ID Band Number: [id number]
[2018-06-17 11:32] LABS: BASO % 0.3 % (0.0-2.0); EOS # 0.1 K/uL (0.0-0.7); LYMPH # 1.3 K/uL (1.0-4.3); LYMPH % 12.5 % (20.0-40.0); MEAN CELL VOLUME 89.3 fl (81.0-99.0); MEAN CORPUSCULAR HEMOGLOBIN 29.5 pg (27.0-31.0); MEAN CORPUSCULAR HGB CONC 33.1 g/dL (33.0-37.0); MEAN PLATELET VOLUME 7.8 fl (7.2-11.7); MONO # 1.3 K/uL (0.0-0.8); MONO % 11.6 % (0.0-10.0); NEUT % 74.6 % (50.0-75.0); RBC 4.39 Mil/uL (3.80-5.20); RED CELL DISTRIBUTION WIDTH 14.3 % (11.5-14.5); WHITE BLOOD COUNT 10.8 K/uL (4.8-10.8)
--- NOTE | 2018-06-18 08:05 | OBPPN ---
Datetime: 06/18/2018 08:02 PP Pain Prov: Within normal limits PP Nausea Prov: Denies PP Flatus Prov: Yes PP BM Prov: Yes PP Breasts Prov: Normal PP Heart Prov: Normal PP Lungs Prov: Normal PP Abdomen/Uterus Prov: Normal PP Lochia Prov: Normal PP Vulva/Perineum Prov: Normal PP CVA Tenderness Prov: Normal PP Extremities Prov: Normal PP Impression Prov: Normal progression PP Plan Prov: Discharge PP Progress Note Prov: SHe feels fine A; S/P day 2 PLAN DIshcagre home and follow up [facility] Vital Signs Provider PP: Reviewed; Within Normal Limits
--- NOTE | 2018-06-18 12:51 | OBDCSUM ---
Datetime: 06/18/2018 08:03 Discharged to, Provider: Home Follow up at, Provider: Tim Hedrick Instr Activity: Normal activity Disch Instr Diet: Regular Discharge Instructions, Provider: Routine instructions given Discharge Diagnosis, Provider: Term Delivered Discharge Time: 06/18/2018 12:00 Follow up in weeks, Provider: 6week Disch Referrals: None Contraception discussed, Prov: Yes Disch Activity Restrictions: No lifting; No sexual activity; Nothing in vagina - [place], tampon slorin
[2018-06-19 14:17] VITALS: BP 106/67; PULSE 80; RESP 20; TEMP 97.9
== END 2018-06-18 13:30 | disposition home or self-care (01) | DRG 775 ==
LOC: H.EROB2 14:58 → H.L&D 15:57 → H.OB/GYN 06-17 01:35
PROVIDERS: ADMIT Obstetrics & Gynecology Gynecology; ATTEND Obstetrics & Gynecology Gynecology
PROC: 10E0XZZ Delivery of Products of Conception, External Approach (ICD-10-PCS; principal; 2018-06-16)
PROC: 4A1HXCZ Monitoring of Products of Conception, Cardiac Rate, External Approach (ICD-10-PCS; 2018-06-16)
DX: O41.03X0 Oligohydramnios, third trimester, not applicable or unspecified (principal); Z37.0 Single live birth; Z3A.37 37 weeks gestation of pregnancy

== ENCOUNTER 2019-03-12 14:06 | Emergency (ER) | payer MEDICAID, OTHER ==
[2019-03-12 14:07] VITALS: BMI 24.6
[2019-03-12 14:13] VITALS: O2SAT 98
[2019-03-12 14:15] VITALS: TEMP 98.5
--- NOTE | 2019-03-12 14:33 | ED PDOC ---
HPI: Chest Pain Time Seen by Provider: 03/12/19 14:22 Chief Complaint (Nursing): Chest Pain Chief Complaint (Provider): Chest pain History Per: Patient History/Exam Limitations: no limitations Onset/Duration Of Symptoms: Days (few days) Additional Complaint(s): Pt. with chest pain left ribs with dyspnea. No weakness, numbness, tingles, headaches, dizziness. No hormones, leg pain, long distance travel. No injury. Has wpw and sees different cardiologists who say to watch. It comes and goes, no additional tx for it. Past Medical History Reviewed: Nursing Documentation, Vital Signs Vital Signs: Last Vital Signs Temp 98.5 F 03/12/19 14:15 Pulse 65 03/12/19 14:15 Resp 20 03/12/19 14:15 BP 104/64 03/12/19 14:15 Pulse Ox 98 03/12/19 14:15 - Medical History PMH: Asthma, CAD (WPW) Denies: Alzheimer's Disease, Chronic Kidney Disease - Surgical History Surgical History: No Surg Hx - Family History Family History: States: Unknown Family Hx - Home Medications Home Medications: Ambulatory Orders Medication Instructions Recorded Vit No.126/Iron/Folic 1 tab PO DAILY 08/18/16 [Prenavite] Albuterol HFA [Ventolin HFA 90 1 puff IH Q6 PRN #1 inhaler 01/31/17 mcg/actuation (8 g)] - Allergies Allergies/Adverse Reactions: Allergies Allergy/AdvReac Type Severity Reaction Status Date / Time influenza virus vaccine, Allergy ANAPHYLAXIS Verified 03/12/19 14:10 specific [influenza virus vacc,specific] latex Allergy RASH Verified 03/12/19 14:10 oseltamivir phosphate Allergy ANAPHYLAXIS Verified 03/12/19 14:10 [From Tamiflu] Penicillins Allergy RASH Verified 03/12/19 14:10 pomegranate Allergy RASH Verified 03/12/19 14:10 Review of Systems ROS Statement: Except As Marked, All Systems Reviewed And Found Negative Cardiovascular: Positive for: Chest Pain Respiratory: Positive for: Shortness of Breath Physical Exam - Reviewed Nursing Documentation Reviewed: Yes Vital Signs Reviewed: Yes - Physical Exam Appears: Positive for: Non-toxic, No Acute Distress Head Exam: Positive for: ATRAUMATIC, NORMAL INSPECTION, NORMOCEPHALIC Skin: Positive for: Normal Color, Warm, DRY Eye Exam: Positive for: EOMI, Normal appearance, PERRL ENT: Positive for: Normal ENT Inspection Neck: Positive for: Normal, Painless ROM Cardiovascular/Chest: Positive for: Regular Rate, Rhythm. Negative for: Chest Non Tender (left lower chest), Edema Respiratory: Positive for: CNT, Normal Breath Sounds Gastrointestinal/Abdominal: Positive for: Soft, Tenderness (epigastric mild) Back: Positive for: Normal Inspection. Negative for: L CVA Tenderness, R CVA Tenderness Extremity: Positive for: Normal ROM. Negative for: Tenderness Neurological/Psych: Positive for: Awake, Alert, Normal Tone - ECG O2 Sat by Pulse Oximetry: 98 Pulse Ox Interpretation: Normal - Progress ED Course And Treament: 1435: Stable. AAOx3. Dr. Hicks to take over care. Disposition - Clinical Impression Clinical Impression: Acute chest pain - Patient ED Disposition Is Patient to be Admitted: Transfer of Care - Disposition Disposition: Transfer of Care Disposition Time: 14:37 Condition: FAIR Patient Signed Over To: Rosa Hicks
[2019-03-12] MEDS ORDERED: Sodium Chloride 0.9% 1,000 ML IV STA (14:34)
[2019-03-12 15:40] LABS: BASO % 0.5 % (0.0-2.0); EOS # 0.4 K/uL (0.0-0.7); HEMOGLOBIN 13.7 g/dL (12.0-16.0); LYMPH % 38.3 % (20.0-40.0); MEAN CELL VOLUME 94.4 fl (81.0-99.0); MEAN CORPUSCULAR HEMOGLOBIN 31.4 pg (27.0-31.0); MEAN CORPUSCULAR HGB CONC 33.2 g/dL (33.0-37.0); MEAN PLATELET VOLUME 7.3 fl (7.2-11.7); MONO # 0.5 K/uL (0.0-0.8); NEUT # 2.3 K/uL (1.8-7.0); NEUT % 44.2 % (50.0-75.0); NRBC % 0.1 % (0.0-0.0); RBC 4.36 Mil/uL (3.80-5.20); RED CELL DISTRIBUTION WIDTH 13.7 % (11.5-14.5); WHITE BLOOD COUNT 5.2 K/uL (4.8-10.8)
--- NOTE | 2019-03-12 15:43 | ED PDOC ---
- Laboratory Results Result Diagrams: 03/12/19 15:10 03/12/19 15:10 - ECG O2 Sat by Pulse Oximetry: 98 Medical Decision Making Medical Decision Making: Time: 1500 --Patient is endorsed to provider by Dr. Riddle, pending ED work-up, reassessment, and final disposition. Time: 1605 --CXR FINDINGS: LUNGS: No active pulmonary disease. PLEURA: No significant pleural effusion identified. No pneumothorax apparent. CARDIOVASCULAR: No aortic atherosclerotic calcification present. Normal cardiac size. No pulmonary vascular congestion. OSSEOUS STRUCTURES: No significant abnormalities. VISUALIZED UPPER ABDOMEN: Normal. OTHER FINDINGS: None. IMPRESSION: No active disease. Time: 1615 --Labs reviewed: (-) significant clinical abnormality. Scribe Attestation: Documented by Cathryn Parish, acting as a scribe for Rosa Hicks MD. Provider Scribe Attestation: All medical record entries made by the Scribe were at my direction and personally dictated by me. I have reviewed the chart and agree that the record accurately reflects my personal performance of the history, physical exam, medical decision making, and the department course for this patient. I have also personally directed, reviewed, and agree with the discharge instructions and disposition. Disposition Counseled Patient/Family Regarding: Studies Performed, Diagnosis, Need For Followup - Clinical Impression Clinical Impression: History of Apbmz-Kfxencuqi-Bhaxq (WPW) syndrome, Chest pain - POA Present On Arrival: None - Disposition Referrals: [facility] [place] [Outside] (PLEASE FOLLOWUP AT CLINIC FOR REEVALUATION) Disposition: Routine/Home Disposition Time: 16:22 Condition: STABLE Instructions: Chest Pain That Is Not Caused by the Heart (DC) Forms: [facility] ED School/Work Excuse
[2019-03-12 15:51] LABS: ALB/GLOB RATIO 1.5 (1.0-2.1); ALBUMIN 4.3 g/dL (3.5-5.0); ALT/SGPT 41 U/L (9-52); AST/SGOT 28 U/L (14-36); BLOOD UREA NITROGEN 14 mg/dl (7-17); CALCIUM 9.3 mg/dL (8.4-10.2); GFR NON-AFRICAN AMERICAN > 60
--- NOTE | 2019-03-12 16:09 | RAD ---
Date of service: 03/12/2019 HISTORY: pain COMPARISON: Chest radiograph dated 05/30/2015 TECHNIQUE: Chest PA and lateral views FINDINGS: LUNGS: No active pulmonary disease. PLEURA: No significant pleural effusion identified. No pneumothorax apparent. CARDIOVASCULAR: No aortic atherosclerotic calcification present. Normal cardiac size. No pulmonary vascular congestion. OSSEOUS STRUCTURES: No significant abnormalities. VISUALIZED UPPER ABDOMEN: Normal. OTHER FINDINGS: None. IMPRESSION: No active disease.
[2019-03-12 17:17] VITALS: PULSE 70
[2019-03-12 17:20] VITALS: BP 110/70; RESP 18
--- NOTE | 2019-03-13 21:25 | CARD ---
APPROVED REPORT Date of service: 03/12/2019 EKG Measurement Heart [id number] <Conclusion> Normal sinus rhythm Ventricular pre-excitation, WPW pattern type B Abnormal ECG
== END 2019-03-12 17:09 | disposition home or self-care (01) ==
LOC: H.ER 14:06
DX: R07.9 Chest pain, unspecified (principal); I45.6 Pre-excitation syndrome
CPT/HCPCS: 71046; 80053; 81025; 84484; 85025; 93005; 96374; 99283; J1885; J7030